=== PATIENT | female | born 1955 | race Caucasian/White ===

== ENCOUNTER → 2023-05-29 08:14 | Outpatient (BNVA) | payer MEDICARE, BC, SELFPAY | PROVIDERS: PCP Family Medicine; Visit Provider Family Medicine | DX: R53.83 Other fatigue (principal); L65.9 Nonscarring hair loss, unspecified; G47.00 Insomnia, unspecified; R63.5 Abnormal weight gain; Z13.6 Encounter for screening for cardiovascular disorders; M85.80 Other specified disorders of bone density and structure, unspecified site | CPT/HCPCS: 80053; 80061; 82306; 82533; 82607; 82670; 83001; 84443; 85025 ==

== ENCOUNTER 2023-06-03 10:42 | Outpatient (CLI) | payer MEDICARE, BC, SELFPAY ==
[2023-06-14 13:55] LABS: Free Cortisol Urine 17.5 mcg/24 h (4.0-50.0); Total Urine 1675 mL; Urine Creatinine 1.18 g/24 h (0.50-2.15)
== END 2023-06-03 10:43 | disposition home or self-care (01) ==
LOC: LAB 10:49
PROVIDERS: PCP Family Medicine; Visit Provider Family Medicine
DX: R53.83 Other fatigue (principal); L65.9 Nonscarring hair loss, unspecified; G47.00 Insomnia, unspecified; R63.5 Abnormal weight gain
CPT/HCPCS: 82530

== ENCOUNTER 2023-08-01 14:46 | Outpatient (CLI) | payer MEDICARE, BC, SELFPAY ==
--- NOTE | 2023-08-01 14:51 | XR_ITS ---
WS: [id number] Right knee, 3 views, 08/01/2023 Clinical Data: PAIN IN R KNEE Comparison: None. Findings: No fractures or dislocations are seen. There is medial joint compartment narrowing with small spurs o f the medial tibial plateau and medial femoral condyle. The lateral joint space is normal. There is a small posterior superior spur of the right patella. The soft tissues are unremarkable. 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 Kellgren-Vicente Classification: grade 2 (minimal): definite osteophytes and possible joint space na rrowing
== END 2023-08-01 14:47 | disposition home or self-care (01) ==
LOC: RAD 14:49
PROVIDERS: PCP Family Medicine; Visit Provider Family Medicine
DX: M17.11 Unilateral primary osteoarthritis, right knee (principal); M25.561 Pain in right knee
CPT/HCPCS: 73562

== ENCOUNTER 2023-09-02 13:38 | Outpatient (CLI) | payer MEDICARE, BC, SELFPAY ==
--- NOTE | 2023-09-02 13:39 | XR_ITS ---
WS: [id number] DEXA (DUAL ENERGY X-RAY ABSORPTIOMETRY) Bone mineral density was performed using a Postcron machine. HISTORY: osteopenia followup COMPARISON: None available. Lumbar spine BMD (L1-L4): 0.919 g/cm2 T score: -2.2 Z score: -1.5 Total hip BMD: Left: 0.776 g/cm2. T score: -1.8 Z score: -1.1 Right: 0.783 g/cm2. T score: -1.8 Z score: -1.1 10 year probability of a major osteoporotic fracture is 17.9%. XR/XR DEXA axial skeleton* [id number] IMPRESSION: OSTEOPENIA based upon the WHO classification for females.
== END 2023-09-02 13:39 | disposition home or self-care (01) ==
LOC: RAD 13:38
PROVIDERS: PCP Family Medicine; Visit Provider Family Medicine
DX: Z78.0 Asymptomatic menopausal state (principal); M85.88 Other specified disorders of bone density and structure, other site
CPT/HCPCS: 77080

== ENCOUNTER 2023-10-16 10:53 | Outpatient (CLI) | payer MEDICARE, BC, SELFPAY ==
[2023-10-16 12:01] LABS: 25 Hydroxy Vitamin D 37 ng/mL (30-100); Anion Gap 15.2 (5-19); Blood Urea Nitrogen 22 mg/dL (8-23); Calcium 9.2 mg/dL (8.5-10.5); Carbon Dioxide 25 mmol/L (22-29); Chloride 106 mmol/L (98-107); Glomerular Filtration Rate 71.3 mL/min (90-130); Glucose 98 mg/dL (65-115); Osmolality Calculated 297 mOsm/kg (285-295); Potassium 4.2 mmol/L (3.5-5.1); Sodium 142 mmol/L (136-145); Thyroid Stimulating Hormone 2.57 uIU/mL (0.27-4.20)
== END 2023-10-16 10:54 | disposition home or self-care (01) ==
LOC: LAB 10:55
PROVIDERS: PCP Family Medicine; Visit Provider Family Medicine
DX: M85.80 Other specified disorders of bone density and structure, unspecified site (principal); R53.83 Other fatigue
CPT/HCPCS: 36415; 80048; 82306; 84443

== ENCOUNTER → 2023-10-20 14:52 | Outpatient (BNVA) | payer MEDICARE, BC, SELFPAY | PROVIDERS: PCP Family Medicine; Visit Provider Podiatrist Foot & Ankle Surgery | DX: M79.672 Pain in left foot; M76.822 Posterior tibial tendinitis, left leg; B35.1 Tinea unguium | CPT/HCPCS: 73610; 73620; 73630; 99203 ==

== ENCOUNTER → 2023-10-21 14:29 | Outpatient (BNVA) | payer MEDICARE, BC, SELFPAY | PROVIDERS: PCP Family Medicine; Visit Provider Family Medicine | DX: L91.8 Other hypertrophic disorders of the skin (principal) | CPT/HCPCS: 88305 ==

== ENCOUNTER → 2024-08-02 15:31 | Outpatient (BNVA) | payer MEDICARE, BC, SELFPAY | PROVIDERS: PCP Family Medicine; Visit Provider Family Medicine | DX: L82.1 Other seborrheic keratosis (principal); L81.9 Disorder of pigmentation, unspecified | CPT/HCPCS: 88305 ==

== ENCOUNTER 2024-12-07 15:05 | Outpatient (CLI) | payer MEDICARE, BC, SELFPAY ==
--- NOTE | 2024-12-07 15:13 | XRR_ITS ---
PROCEDURE INFORMATION: Exam: XR Bilateral Hips Exam date and time: 12/07/2024 3:18 PM Age: 69 years old Clinical indication: Hip pain; Bilateral; Additional info: Low back pain, right leg pain, left hip pain TECHNIQUE: Imaging protocol: Radiologic exam of the bilateral hips. Views: 2 views of hips with pelvis when performed. COMPARISON: CR XR lumbar spine 2-3V* [id number] 12/07/2024 3:18 PM FINDINGS: Tubes, catheters and devices: Surgical clips overlie the lower abdomen and upper pelvis. Bones/joints: No fracture or dislocation. The hip joints are normal. Mild subchondral sclerosis is noted inferiorly involving the iliac portion of the left SI joint. No other osseous abnormalities in the pelvis. Soft tissues: Linear, dystrophic calcification projects in the subcutaneous fat of the upper right thigh laterally. XR/XR hip BI m 5V wo/w pel* [id number] IMPRESSION: 1. No acute findings. 2. Normal hips. 3. Degenerative changes in the inferior left SI joint.
--- NOTE | 2024-12-07 15:13 | XRR_ITS ---
PROCEDURE INFORMATION: Exam: XR Lumbosacral Spine Exam date and time: 12/07/2024 3:18 PM Age: 69 years old Clinical indication: Low back pain; Additional info: Low back pain, right leg pain, left hip pain TECHNIQUE: Imaging protocol: Radiologic exam of the lumbosacral spine. Views: 2 or 3 views. COMPARISON: CR XR hip BI m 5V wo/w pel* [id number] 12/07/2024 3:18 PM FINDINGS: Tubes, catheters and devices: Numerous surgical clips and amy overlie the. Bones/joints: No fracture or malalignment. Vertebral body heights are within normal limits. No suspicious osseous lesions. Mild L5-S1 disc height loss. No other disc space abnormalities. Soft tissues: Unremarkable. XR/XR lumbar spine 2-3V* [id number] IMPRESSION: Mild degenerative disc disease at L5-S1.
== END 2024-12-07 15:06 | disposition home or self-care (01) ==
LOC: RAD 15:09
PROVIDERS: PCP Family Medicine; Visit Provider Family Medicine
DX: M51.372 Other intervertebral disc degeneration, lumbosacral region with discogenic back pain and lower extremity pain (principal); M25.552 Pain in left hip; M25.551 Pain in right hip
CPT/HCPCS: 72100; 73523; 85651; 86141